=== PATIENT | male | born 1945 | race Caucasian/White ===

== ENCOUNTER 2018-01-08 06:06 | Day surgery (SDC) | payer OTHER ==
[2018-01-07 08:27] VITALS: BMI 28.2
[2018-01-08] MEDS ORDERED: BUPIVACAINE HCL/PF 0.5% (5MG/ML) 10 ML VIAL ONE (07:24)
[2018-01-08] MEDS ORDERED: MIDAZOLAM HCL 2 MG/2 ML SINGLE DOSE VIAL ONE (07:54)
[2018-01-08] MEDS ORDERED: PROPOFOL 20 ML ONE (07:54)
[2018-01-08] MEDS ORDERED: ceFAZolin SODIUM 1 GM VIAL ONE (07:54)
[2018-01-08] MEDS ORDERED: ceFAZolin SODIUM 1 GM VIAL IVPB ONE (08:10)
[2018-01-08] MEDS ORDERED: LIDOCAINE HCL 1%, 10 MG/ML (20ML VIAL) NR ONE (08:23)
[2018-01-08] MEDS ORDERED: BUPIVACAINE HCL/PF 0.5% (5MG/ML) 10 ML VIAL IJ ONE (08:23)
--- NOTE | 2018-01-08 09:14 | OP ---
Operative Note - Note: Operative Date: 01/08/18 Pre-Operative Diagnosis: left inguinal hernia Operation: repair left inguinal hernia w/mesh Findings: indirect LIH; lipoma of the cord and attenuated transversalis fascia c/w direct hernia Post-Operative Diagnosis: Same as Pre-op Surgeon: Jay Pompa Body Finisher: Alton Cabrera Anesthesiologist/PAPER FEEDER: Lara Mann Anesthesia: General Specimens Removed: lipoma and sac Estimated Blood Loss (mls): 5
[2018-01-08] MEDS ORDERED: oxyCODONE HCL 5 MG TABLET PO PRN (09:22)
[2018-01-08] MEDS ORDERED: ACETAMINOPHEN 500 MG TABLET (FP) PO PRN (09:22)
[2018-01-08] MEDS ORDERED: ONDANSETRON 4 MG/2 ML VIAL IVPUSH PRN (09:22)
[2018-01-08] MEDS ORDERED: KETOROLAC TROMETHAMINE 30 MG/1 ML VIAL IVPUSH ONE (09:23)
--- NOTE | 2018-01-08 09:23 | SURG ---
Surgery Recycle Driver Note Recycle Driver: Alton Cabrera PA-C Date of Service: 01/08/18 Diagnosis: Left inguinal hernia Procedure: Open left inguinal hernia repair with mesh I was present for the entirety of the operative procedure. For further detail, please refer to operative report.
[2018-01-08] MEDS ORDERED: LACTATED RINGERS SOLUTION 1,000 ML IV SCH (09:30)
[2018-01-08] MEDS ORDERED: ACETAMINOPHEN 325 MG TABLET (FP) ONE (09:42)
[2018-01-08] MEDS ORDERED: oxyCODONE HCL 5 MG TABLET ONE (11:00)
[2018-01-08 14:33] VITALS: TEMP 97.5
[2018-01-08 16:19] VITALS: BP 139/69; PULSE 54
--- NOTE | 2018-01-12 16:42 | PATH ---
Surgical Pathology Report Patient Name: PHANI OCONNOR [facility]. Rec. #: [id number] /Age/Gender: 1945 (Age: 72) / M Account: [id number] Location: [facility] SURGICAL Taken: 01/08/2018 Received: 01/08/2018 Reported: 01/12/2018 Physicians: Jay Pompa MD Specimen(s) Received A: LIPOMA B: HERNIA SAC Clinical History Left inguinal hernia Final Diagnosis A. LIPOMA, EXCISION: MATURE ADIPOSE TISSUE, CONSISTENT WITH LIPOMA. B. HERNIA SAC, EXCISION: CONSISTENT WITH HERNIA SAC. Electronically Signed Halle Garcia M.D. Gross Description A. Received in formalin labeled "lipoma," is a 6.3 x 2.3 x 0.8 cm portion of yellow, lobulated adipose tissue. Sectioning reveals homogeneous yellow, smooth fat. No areas of hemorrhage or necrosis are identified. Eyeglass Maker sections are submitted in one cassette. B. Received in formalin labeled "hernia sac," is a 1.8 x 0.7 x 0.6 cm cooley-marte portion of fibromembranous tissue, consistent with a hernia sac. The specimen is trisected and entirely submitted in one cassette. 01/08/201801/08/2018
--- NOTE | 2018-01-13 09:11 | OP ---
DATE OF OPERATION: 01/08/2018 PREOPERATIVE DIAGNOSIS: Left inguinal hernia. POSTOPERATIVE DIAGNOSIS: Left inguinal hernia. PROCEDURE: Repair, left inguinal hernia, with mesh. SURGEON: Jay Pompa MD NURSE MIDWIFE: Alton Cabrera PA-C ANESTHESIA: General. OPERATIVE FINDINGS: There was an indirect left inguinal hernia, a lipoma of the cord and an attenuated transversalis fascia consistent with a direct hernia as well. The rest of the findings were unremarkable. PROCEDURE: The patient was placed on the operating room table in a supine position and after the induction of general anesthesia the patient's left groin was prepped with Betadine and draped in a sterile fashion. A timeout was taken and a left groin incision mapped out and the area infiltrated with 1% Xylocaine and 0.5% Marcaine in equal concentration. Skin incision was made with a scalpel and taken down through subcutaneous tissue to Hitesh fascia. The external oblique fascia was identified and opened proximally and distally in the direction of its fibers and through the external ring. The cord structures and nerve were elevated at the level of the pubic tubercle and a Carlton drain placed around them for retraction and identification purposes. The previously noted findings were observed. The lipoma of the cord was dissected from the cord structures up to the internal ring where it was clamped, excised and its pedicle ligated with 2-0 Vicryl suture. The indirect sac was similarly identified and traced up to the internal ring and a high ligation carried out with 2-0 Vicryl and redundant sac excised and sent for pathological examination. The floor of the inguinal canal was then repaired by placing a piece of Parietex ProGrip mesh into the inguinal canal and anchoring it at the pubic tubercle, shelving edge and conjoined tendon, respectively, with interrupted 2-0 Prolene. A keyhole was created for the cord structures and the tails of the mesh brought above the level of the internal ring, crossed and anchored above the level of the internal ring with interrupted 2-0 Prolene. Hemostasis was checked for and noted to be good and then the wound was copiously irrigated with sterile saline. Hemostasis was again verified and then the cord structures and nerve returned to their normal anatomic position and the external oblique fascia closed using continuous 2-0 Vicryl recreating the external ring. Hitesh fascia was reapproximated with interrupted 2-0 Vicryl, the deep dermis with interrupted 3-0 Vicryl and the skin edges with 4-0 Monocryl in a subcuticular continuous fashion. Steri-Strips, fluffs and dry sterile dressings were placed and the procedure terminated at this point and the patient aroused from general anesthesia and transferred to the postanesthesia care unit in stable condition, awake and alert. Estimated blood loss 5 mL. Replaced with crystalloid. Drains none. Specimens: Hernia sac and lipoma of cord to Pathology. I, Jay Pompa, was physically present in the operating room from the time the patient was placed on the operating room table until he was transferred to the postanesthesia care unit in my accompaniment. MD BRICE Dinero/[id number]
== END 2018-01-08 16:21 | disposition home or self-care (01) ==
LOC: JASU-SURG 06:06
PROVIDERS: ATTEND Surgery
PROC: 0YU60JZ Supplement Left Inguinal Region with Synthetic Substitute, Open Approach (ICD-10-PCS; principal; 2018-01-08 08:00)
DX: K40.90 Unilateral inguinal hernia, without obstruction or gangrene, not specified as recurrent (principal)
CPT/HCPCS: 88302-TC; 88304-TC; 94760

== ENCOUNTER 2018-01-21 09:07 | Emergency (ER) | payer OTHER ==
[2018-01-21 09:17] VITALS: BP 145/86; PULSE 83; TEMP 98.2; BMI 22.2
--- NOTE | 2018-01-21 10:08 | PDOC ---
History of Present Illness - General Chief Complaint: Pain Stated Complaint: LT LEG PAIN, POST OP Time Seen by Provider: 01/21/18 09:37 - History of Present Illness Initial Comments: 01/21/18 10:27 72 years old past medical history significant for hypertension status post left inguinal hernia repair patient presents with 2 day history of intermittent seconds of left upper thigh pain just below his inguinal surgery site. Pain is worse with coughing and when bearing down. There is no bulge. There is no dehiscence of the wound. There is no bleeding or change in size of the surgical repair site. He saw his surgeon last Thursday and the surgical incision site is healing well No fever no chills no nausea no vomiting no urinary symptoms no bowel symptoms Past History - Past Medical History Allergies/Adverse Reactions: Allergies Allergy/AdvReac Type Severity Reaction Status Date / Time No Known Allergies Allergy Verified 01/21/18 09:13 Home Medications: Ambulatory Orders Atenolol [Tenormin] 25 mg PO DAILY 01/07/18 Cholecalciferol (Vitamin D3) [Vitamin D3] 1,000 unit PO DAILY 01/07/18 Fluticasone Propionate [24 Hour Allergy Relief] 15.8 ml NS PRN 01/07/18 Multivit-Min/FA/Lycopen/Lutein [Centrum Silver Tablet] 1 each PO DAILY 01/07/18 Simvastatin 20 mg PO HS 01/07/18 Docusate Sodium [Colace] 100 mg PO BID #30 capsule 01/08/18 Oxycodone HCl/Acetaminophen [Percocet 5-325 mg Tablet] 1 tab PO Q6H PRN #20 tablet MDD 4 01/08/18 Anemia: No Asthma: No Cancer: No Cardiac Disorders: No CVA: No COPD: No CHF: No Dementia: No Diabetes: No GI Disorders: No Disorders: No HTN: Yes Hypercholesterolemia: Yes Liver Disease: No Seizures: No Thyroid Disease: No - Surgical History Abdominal Surgery: Yes (hernia) - Immunization History Immunization Up to Date: Yes - Suicide/Smoking/Psychosocial Hx Smoking History: Never smoked Hx Alcohol Use: No Drug/Substance Use Hx: No Substance Use Type: Alcohol Hx Substance Use Treatment: No Review of Systems - Review of Systems Comments:: 01/21/18 10:28 ROS: A complete review of 10 out of 10 review of systems is taken and is negative apart from what is previously mentioned below and in the HPI. *Physical Exam - Vital Signs Last Vital Signs Temp Pulse Resp BP Pulse Ox 98.2 F 83 18 145/86 98 01/21/18 09:13 01/21/18 09:13 01/21/18 09:13 01/21/18 09:13 01/21/18 09:13 - Physical Exam Comments: 01/21/18 10:28 Vitals: Triage Vital signs reviewed General Appearance: no acute distress, well nourished well developed, Head: Atraumatic, Neck: Supple;No Nucal rigidity Chest Wall: Nontender Cardiac: Regular rate and rhythym, no murmurs, no rubs, no gallops, Lungs: Clear to auscultation bilateral, good air movement bilaterally, Abdomen: Soft, non distended, normal bowel sounds, non tender to palpation Musculoskeletal: No midline back tenderness to palpation Extremities: Full range of motion to all extremities, no cyanosis, clubbing, or edema Skin: Warm and dry, well-healing surgical incision to left inguinal area. Slight ecchymosis no evidence of cellulitis no dehiscence no pulsatile mass no tenderness to palpation Psych: normal mood, normal affect Medical Decision Making - Medical Decision Making 01/21/18 10:29 Well-appearing no apparent distress no evidence of infection on examination history and examination most consistent with musculoskeletal discomfort status post surgery Case discussed with Dr. Pompa surgery no acute interventions and at this time given no concern for infection no indication at this time for labs or CT. If pain becomes more than a few seconds with movement or is associated with any fever swelling redness patient will return to the emergency department immediately for lab work and imaging otherwise he will follow-up with Dr. Pompa surgery next Thursday. Findings, need for follow-up and strict return instructions discussed with patient. *DC/Admit/Observation/Transfer Diagnosis at time of Disposition: Inguinal pain Qualifiers: Laterality: left Qualified Code(s): R10.32 - Left lower quadrant pain - Discharge Dispostion Disposition: HOME Condition at time of disposition: Good Decision to Admit order: No - Referrals Referrals: Jay Pompa MD [Staff Physician] - - Patient Instructions Additional Instructions: Take 1 tab [id number] Aleve twice a day for the next 3 days. Return to ED for any severe fever abdominal pain swelling bleeding redness around the surgical site or for any concerns. Otherwise follow-up with Dr. Pompa next Thursday. - Post Discharge Activity
== END 2018-01-21 10:49 | disposition home or self-care (01) ==
LOC: JER 09:07
DX: R10.32 Left lower quadrant pain (principal); Z98.890 Other specified postprocedural states; I10 Essential (primary) hypertension; E78.00 Pure hypercholesterolemia, unspecified
CPT/HCPCS: 99282-25